=== PATIENT | male | born 1990 | race Caucasian/White ===

== ENCOUNTER 2018-09-12 11:17 | Emergency (ER) | payer MEDICAID ==
[~2018-09-12] VITALS: Ht 170.2 cm; Wt 91.0 kg
[2018-09-12] MEDS ORDERED: IBUPROFEN 600MG TABLET PO ONE (13:15)
[2018-09-12 13:22] VITALS: BP 128/75
== END 2018-09-12 14:34 | disposition home or self-care (01) ==
LOC: ER 11:17
DX: S39.013A Strain of muscle, fascia and tendon of pelvis, initial encounter (principal); X58.XXXA Exposure to other specified factors, initial encounter; Y93.89 Activity, other specified; Y92.012 Bathroom of single-family (private) house as the place of occurrence of the external cause
CPT/HCPCS: 99283